=== PATIENT | male | born 1950 | race Caucasian/White ===

== ENCOUNTER → 2020-07-30 17:11 | Outpatient (CLI) | payer MEDICARE, SELFPAY | PROVIDERS: PCP Family Medicine; Visit Provider Family Medicine | DX: Z20.828 Contact with and (suspected) exposure to other viral communicable diseases (principal); U07.1 COVID-19 | CPT/HCPCS: U0003 ==

== ENCOUNTER → 2020-09-14 14:32 | Outpatient (CLI) | payer MEDICARE, SELFPAY ==
[2020-09-16 13:25] LABS: Covid-19 Nasal PCR Sendout Lex Not Detected
== END ==
PROVIDERS: PCP Family Medicine; Visit Provider Family Medicine
DX: Z03.818 Encounter for observation for suspected exposure to other biological agents ruled out (principal)
CPT/HCPCS: U0004

== ENCOUNTER → 2020-12-14 10:37 | Outpatient (CLI) | payer MEDICARE, SELFPAY ==
[2020-12-14 11:45] LABS: Coronavirus 19 IgG Antibody Negative (Negative); Coronavirus 19 IgM Antibody Negative (Negative)
== END ==
PROVIDERS: Visit Provider Ophthalmology
DX: Z01.812 Encounter for preprocedural laboratory examination (principal)
CPT/HCPCS: 36415; 86328

== ENCOUNTER 2020-12-15 08:41 | Day surgery (SDC) | payer MEDICARE, SELFPAY ==
[2020-12-08 12:12] VITALS: BMI 24.1
[2020-12-15 10:11] VITALS: BP 154/65; PULSE 63; RESP 18; TEMP 36.4; O2SAT 98
[2020-12-15 11:18] VITALS: BP 136/83; PULSE 56; RESP 16; TEMP 36.6; O2SAT 99
== END 2020-12-15 11:24 | disposition home or self-care (01) ==
PROVIDERS: PCP Family Medicine; Visit Provider Ophthalmology
PROC: (CPT 66821; principal; 2020-12-15 09:30)
DX: H26.493 Other secondary cataract, bilateral (principal); Z96.1 Presence of intraocular lens; Z88.1 Allergy status to other antibiotic agents; K21.9 Gastro-esophageal reflux disease without esophagitis; I48.91 Unspecified atrial fibrillation; M19.90 Unspecified osteoarthritis, unspecified site; Z86.73 Personal history of transient ischemic attack (TIA), and cerebral infarction without residual deficits; Z79.82 Long term (current) use of aspirin; Z79.899 Other long term (current) drug therapy
CPT/HCPCS: 66821

== ENCOUNTER → 2021-10-06 12:10 | Outpatient (CLI) | payer MEDICARE, SELFPAY | PROVIDERS: PCP Family Medicine; Visit Provider Nurse Practitioner | DX: U07.1 COVID-19 (principal) | CPT/HCPCS: C9803; U0003; U0005 ==

== ENCOUNTER 2024-08-26 08:38 | Emergency (ER) | payer MEDICARE, SELFPAY ==
[2024-08-26] VITALS (7 sets, daily range): BP systolic 131–143; BP diastolic 61–82; PULSE 60–70; RESP 14–16; TEMP 36.4; O2SAT 98–100; BMI 23.1
--- NOTE | 2024-08-26 09:06 | CT_ITS ---
PROCEDURE INFORMATION: Exam: CT Abdomen And Pelvis With Contrast Exam date and time: 08/26/2024 9:38 AM Age: 73 years old Clinical indication: Abdominal pain; Generalized; Additional info: Gen abd pain, no bm x 1wk TECHNIQUE: Imaging protocol: Computed tomography of the abdomen and pelvis with contrast. Radiation optimization: All CT scans at this facility use at least one of these dose optimization techniques: automated exposure control; mA and/or kV adjustment per patient size (includes targeted exams where dose is matched to clinical indication); or iterative reconstruction. Contrast material: ISOVUE; Contrast volume: 75 ml; Contrast route: IV; COMPARISON: No relevant prior studies available. FINDINGS: Lungs: Moderate atelectasis is seen in both lung bases. Diaphragm: A small hiatal hernia is seen. Liver: Normal. No mass. Gallbladder and biliary ducts: The gallbladder has been surgically removed. Mild air along the portal vein branches in the left lobe of the liver likely represents pneumobilia. Pancreas: Normal. No ductal dilation. Spleen: Normal. No splenomegaly. Adrenal glands: Normal. No mass. Kidneys and ureters: Mild hydronephrosis is seen on both sides. Stomach and bowel: Large amount of stool is noted in the rectum and sigmoid colon. Appendix: No evidence of appendicitis. Intraperitoneal space: No evidence of free air in the abdomen. Vasculature: Unremarkable. No abdominal aortic aneurysm. Lymph nodes: Unremarkable. No enlarged lymph nodes. Urinary bladder: Unremarkable as visualized. Reproductive: Unremarkable as visualized. Bones/joints: Moderate degenerative changes affect the spine. Old fractures involving the right superior and inferior pubic rami. Moderate degenerative changes affect the spine. Soft tissues: Unremarkable. IMPRESSION: 1. Large amount of stool in the rectum and sigmoid colon likely represents constipation. 2. The gallbladder has been surgically removed. Mild air along the portal vein branches in the left lobe of the liver likely represents pneumobilia. 3. Mild hydronephrosis on both sides.
[2024-08-26 09:14] LABS: Albumin Level 3.9 g/dl (3.5-5.0); Chloride 109 mmol/L (98-107)
[2024-08-26 09:15] LABS: Potassium 4.2 mmoL/L (3.5-5.1); Sodium 137 mmol/L (136-145)
--- NOTE | 2024-08-26 09:15 | HMH.EDGENADL ---
Discharge Plan Disposition Patient Disposition: Home, Self-Care Condition: Good Prescriptions Prescriptions: New peg 3350-electrolytes [Golytely] 236-22.74-6.74 -5.86 gram recon soln 240 ml PO Q10M Qty: 4000 0RF Rx Instructions: until fecal effluent is clear sennosides [senna] 8.6 mg tablet 8.6 mg PO HS PRN (Reason: constipation) Qty: 30 1RF No Action aspirin 81 MG tablet,delayed release (DR/EC) 81 mg PO DAILY pantoprazole 40 MG tablet,delayed release (DR/EC) 40 mg PO BID gabapentin 300 MG capsule 300 mg PO BID fluoxetine 20 MG capsule 20 mg PO DAILY Referrals Follow up/Referrals: Lisa Marte [Primary Care Provider] - See instructions Huy Gale II, MD [Staff Physician] - See instructions Activity Restrictions/Add. Instructions Additional Instructions/Restrictions: You were evaluated in the emergency department today. 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 Gale. Contact his office over the next 24 hours to schedule an appointment. 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 Please follow protocol for bowel cleanout. I recommend clear liquids while doing this and then slowly advancing your diet as tolerated once you have completed cleanout. I am also prescribing you senna to take nightly as needed if you continue to have issues with constipation. Return to the emergency department for new or worsening symptoms. Clinical Impressions Clinical Impression: Pneumobilia, Acute constipation, Fecal impaction Instructions Patient Instructions: DI for Constipation, DI for Acute Abdominal Pain Print Language Print Language: American Discharge ED Provider: Racheal George General Adult HPI General Chief complaint: Abdominal Pain Stated complaint: constipation x4 days, blood, severe adb pain Time Seen by Provider: 08/26/24 08:47 Mode of Arrival: Ambulatory Source of Information: Patient Limitations: No Limitations Description of Symptoms (Recalled from ER Triage Doc. by RN): Mr. Shook reports he has been struggling with constipation, he called Dr. Gale this morning who suggested he come to the ER. pt c/o generalized abd pain that is an 8/10 and sharp in nature. pt denies urinary symptoms. pt states he had a small bm this am and had them over the weekend. He states that his feces is very hard and he is unable to get it all out. pt also c/o bright red blood in his stool but that he thinks its his hemmorhoids. pt is on a bowel regimen of miralax and konosol. History of Present Illness HPI narrative: This patient is a 73-year-old male with a history of GERD, TIA, prior ERCP with stenting complicated by CBD injury, ventral hernia repair presenting to the emergency department for evaluation with concern for upper abdominal pain, feeling that he needs to have a bowel movement but being unable to go, no bowel movement in approximately 1 week with difficulty passing gas. Patient has that he has chronic constipation for which he is on a bowel regimen and follows with Dr. Gale with gastroenterology. He notes that despite this, he has not been able to have a good bowel movement in about a week only passing very small amounts of stool over the weekend. He was passing gas over the weekend but is not today. Pain is mostly in his upper abdomen and is significant. Given this, he was instructed by his doctor to come to the ED for evaluation. No fevers, chills, nausea, vomiting. He does note bright red blood per rectum which he believes is related to hemorrhoids. Related Data Home Medications ?Medication ?Instructions ?Recorded ?Confirmed aspirin 81 mg tablet,delayed 81 mg PO DAILY HEART HEALTH 12/08/20 12/08/20 release fluoxetine 20 mg capsule 20 mg PO DAILY Anxiety 12/08/20 12/08/20 gabapentin 300 mg capsule 300 mg PO BID Pain 12/08/20 12/08/20 pantoprazole 40 mg tablet,delayed 40 mg PO BID GERD 12/08/20 12/08/20 release Previous Rx's ?Medication ?Instructions ?Recorded peg 3350-electrolytes 236 240 ml PO Q10M #4,000 mL 08/26/24 gram-22.74 gram-6.74 gram-5.86 gram solution (Golytely) sennosides 8.6 mg tablet (senna) 8.6 mg PO HS PRN constipation #30 08/26/24 tabs Allergies Allergy/AdvReac Type Severity Reaction Status Date / Time erythromycin base Allergy Mild Nausea Verified 08/26/24 09:09 [facility] Disclaimer: The information contained in this section may have been updated after the patient was seen, as this information can be updated by other users. Social History Smoking Status: Never smoker second hand exposure: No alcohol intake: current alcohol intake frequency: a few times a week current occupational status: retired Travel in the last 8 weeks: None household members: spouse housing: house current occupational exposures/hazards: No caffeine: Yes Other Medical History Have you received the Flu Vaccine for this season: Yes Have you received the Pneumonia Vaccine: Yes ROS Obtained: Yes All systems reviewed & no additional complaints except as documented Physical Exam General General appearance: alert and in no apparent distress Head Head exam: atraumatic and normocephalic Eye Eye exam: Present normal appearance, PERRL and EOMI ENT ENT exam: Present normal exam, normal oropharynx, mucous membranes moist and normal external ear exam Neck Neck exam: Present normal inspection, full ROM and trachea midline; Absent tenderness Chest Chest inspection: Present normal inspection and symmetric chest wall rise; Absent tenderness Respiratory Respiratory exam: Present normal lung sounds bilaterally; Absent respiratory distress, wheezes, stridor or accessory muscle use Cardiovascular Cardiovascular exam: Present regular rate and normal rhythm Abdominal Exam Abdominal exam: Present soft; Absent distention, tenderness or guarding Extremities Exam Extremities exam: Present normal inspection, full ROM and normal capillary refill; Absent tenderness or edema Back Exam Back exam: Present normal inspection and full ROM; Absent tenderness Neurological Exam Neurological exam: Present alert, oriented X3, CN II-XII intact and normal gait; Absent motor sensory deficit Psychiatric Psychiatric exam: Present normal affect and normal mood Skin Skin exam: Present warm and dry Medical Decision Making Medical Records Medical records reviewed: Yes I reviewed the patient's medical records. Screening: Per USPSTF and CDC recommendations, given the prevalence of disease in our region, it is our hospital?s policy to screen for HIV and viral Hepatitis for all patients aged 18 and over and those with ongoing risk factors. Eric Inquiry Pt receiving controlled substance: No Vital Signs: 08/26/24 08:45 08/26/24 08:51 08/26/24 09:12 Temperature 97.6 F Temperature Source Oral Pulse Rate 63 67 Pulse Rate [Left] 70 Respiratory Rate 14 Blood Pressure 143/82 H 142/79 H Blood Pressure [Right Arm] 143/82 H Blood Pressure Mean 102 100 Blood Pressure Mean [Right Arm] 102 Blood Pressure Source [Right Arm] Automatic Cuff Blood Pressure Position [Right Arm] Sitting 02 Sat by Pulse Oximetry 100 98 100 Oxygen Delivery Method Room Air 08/26/24 09:30 08/26/24 10:00 08/26/24 10:30 Temperature Temperature Source Pulse Rate 64 60 65 Pulse Rate [Left] Respiratory Rate Blood Pressure 135/77 137/73 143/61 H Blood Pressure [Right Arm] Blood Pressure Mean 97 94 88 Blood Pressure Mean [Right Arm] Blood Pressure Source [Right Arm] Blood Pressure Position [Right Arm] 02 Sat by Pulse Oximetry 100 100 99 Oxygen Delivery Method 08/26/24 11:06 Temperature 97.6 F Temperature Source Pulse Rate 67 Pulse Rate [Left] Respiratory Rate 16 Blood Pressure 131/74 Blood Pressure [Right Arm] Blood Pressure Mean Blood Pressure Mean [Right Arm] Blood Pressure Source [Right Arm] Blood Pressure Position [Right Arm] 02 Sat by Pulse Oximetry Oxygen Delivery Method Room Air Lab Data Lab results reviewed: Yes I reviewed the patient's lab results. Lab Results 08/26/24 09:01: WBC 5.3, RBC 4.43 L, Hgb 14.5, Hct 41.8 L, MCV 94.4 H, MCH 32.8 H, MCHC 34.7, RDW 13.1, Plt Count 244, MPV 7.3 L, Neut % (Auto) 66.5, Lymph % (Auto) 23.7, Clayton % (Auto) 7.2, Eos % (Auto) 2.0, Baso % (Auto) 0.7, Neut # (Auto) 3.5, Lymph # (Auto) 1.2, Clayton # (Auto) 0.4, Eos # (Auto) 0.1, Baso # (Auto) 0.0, Sodium 137, Potassium 4.2, Chloride 109 H, Carbon Dioxide 23, Anion Gap 9.2, BUN 15, Creatinine 0.80, Estimated Creat Clear 68, Estimated GFR 95, Est GFR ( Amer) 115, Glucose 94, Calcium 9.7, Total Bilirubin 0.8, AST 33, ALT 25, Alkaline Phosphatase 75, Total Protein 6.5, Albumin 3.9, Globulin 2.6, Albumin/Globulin Ratio 1.5, Lipase 173 08/26/24 10:50: Lactate 0.8 08/26/24 09:01 08/26/24 09:01 Orders (Tests/Meds): ED MEDICATIONS Discontinued Medications Generic Name Dose Route Start Last Admin Trade Name Freq PRN Reason Stop Dose Admin Acetaminophen 1,000 mg 08/26/24 09:07 08/26/24 09:17 Acetaminophen 1,000mg/100ml Vial IV 08/26/24 09:08 1,000 mg ONCE ONE Administration Famotidine 20 mg 08/26/24 09:07 08/26/24 09:18 Famotidine 20mg/2ml Vial IV 08/26/24 09:08 20 mg ONCE ONE Administration Iopamidol 75 ml 08/26/24 09:45 08/26/24 09:45 Iopamidol-370 (76%);100ml Bottle IV 08/26/24 09:46 75 ml ONCE ONE Administration Ketorolac Tromethamine 15 mg 08/26/24 09:07 08/26/24 09:17 Ketorolac 30mg/Ml Vial IV 08/26/24 09:08 15 mg ONCE ONE Administration Ondansetron HCl 4 mg 08/26/24 09:07 08/26/24 09:26 Ondansetron 4mg/2ml Vial IV 08/26/24 09:08 4 mg ONCE ONE Administration Sodium Chloride 500 ml 08/26/24 09:07 08/26/24 09:17 Sodium Chloride 0.9% 500ml Bag IV 08/26/24 09:08 500 ml ONCE ONE Administration Sodium Chloride 8 ml 08/26/24 09:07 08/26/24 09:18 Sodium Chloride 0.9% 10ml Vial IV 09/25/24 09:06 8 ml NEEDED PRN Administration dilute pepcid Sodium Chloride 10 ml 08/26/24 09:45 08/26/24 09:45 Sodium Chloride 0.9% 10ml Syr (Rad Only) IV 09/25/24 09:44 10 ml NEEDED PRN Administration Maintain IV Site ORDERS Category Date Time Status CT abdomen pelvis w con Stat Cat Scan 08/26/24 09:06 Completed Complete Blood Count Auto Diff Stat Lab 08/26/24 09:01 Completed Comprehensive Metabolic Panel Stat Lab 08/26/24 09:01 Completed HIV (1&2) Antibody Rapid Stat Lab 08/26/24 09:01 Received Hep C Ab with Reflex to RNA Stat Lab 08/26/24 09:01 Received Lactic Acid Stat Lab 08/26/24 10:50 Completed Lipase Stat Lab 08/26/24 09:01 Completed Medical Decision Narrative: In summary, this patient is a 73-year-old male presenting to the Emergency Department for evaluation of upper abdominal pain, constipation, inability to pass gas or have a good bowel movement. Differential diagnoses considered include but are not limited to constipation, bowel obstruction, diverticulitis, hemorrhoids, ileus. Ruling out the most morbid conditions drove assessment. It should be noted patient's history includes GERD and chronic constipation which are not at goal therapy. This complicates all aspects of care by increasing patient's risk for morbidity. I reviewed patient's past medical records and noted prior surgical history including ventral hernia repair at . Of note, patient also had a hand surgery about a week ago. On exam, the patient is lying in bed in no acute distress. His abdominal exam is benign. Workup included CBC, CMP, lipase, lactic acid, CT abdomen pelvis with IV contrast. He was given a bolus of IV fluids as well as IV Toradol, acetaminophen, Zofran, and Pepcid for symptomatic improvement. I independently interpreted CT scan prior to the radiologist read and noted significant pancolonic stool burden without obvious air-fluid levels concerning for obstruction. Please see their read for final interpretation. They also noted pneumobilia, and I reviewed patient's past medical records from outside hospitals and noted that he has had pneumobilia on previous scans. I feel is likely chronic. Labs were obtained that demonstrated no significant leukocytosis, reassuring chemistry, normal lipase. Exam and workup overall reassuring On reassessment, patient had mild improvement after administration of interventions above. He is lying in bed in no acute distress. Patient and family are frustrated and concerned because they wanted to see his GI doctor, Dr. Gale, and were under the impression that he would be in the ER to take care of him as opposed to a physician he is not familiar with. I advised to them I am happy to call him for recommendations. I did call and discussed the case with Dr. Gale who advised that he felt the patient will be appropriate for a bowel cleanout with GoLytely and close follow-up as an outpatient. He also recommended senna as needed, which I did provide the patient. Patient also consents to manual disimpaction here in the emergency department given large amount of stool in the rectal vault. He went to the bathroom right before planning to do disimpaction and did have a good bowel movement and states that he no longer feels like he is impacted. Given this, disimpaction was deferred. Patient was discharged home with prescriptions for GoLytely and senna as well as instructions for close follow-up with gastroenterology. He was given strict return precautions and was discharged after all questions were answered. Critical Care Critical Care Time Critical Care Time: No
[2024-08-26 09:16] LABS: Basophils % 0.7 % (0.1-2.0); Eosinophils # 0.1 K/mm3 (0.0-0.4); Hematocrit 41.8 % (42.0-52.0); Hemoglobin 14.5 g/dL (14.1-18.0); Lymphocytes # 1.2 K/mm3 (0.7-4.5); Lymphocytes % 23.7 % (10-50); Mean Corpuscular HGB Conc 34.7 g/dL (31.8-35.4); Mean Corpuscular Hemoglobin 32.8 pg (27.0-31.2); Mean Corpuscular Volume 94.4 fl (80-94); Mean Platelet Volume 7.3 fl (7.4-10.4); Monocytes # 0.4 K/mm3 (0.1-1.0); Monocytes % 7.2 % (1.7-9.3); Neutrophils # 3.5 K/mm3 (1.8-7.8); Neutrophils % 66.5 % (37.0-80.0); Platelet Count 244 K/mm3 (142-424); Red Blood Count 4.43 M/mm3 (4.60-6.20); Red Cell Distribution Width 13.1 % (11.5-17.5); White Blood Count 5.3 K/mm3 (4.8-10.8)
[2024-08-26 09:17] LABS: Alanine Aminotransferase 25 U/L (12-78); Albumin/Globulin Ratio 1.5 (1.1-1.8); Alkaline Phosphatase 75 U/L (38-126); Anion Gap 9.2 mEq/L (5-15); Aspartate Amino Transferase 33 U/L (17-59); Bilirubin,Total 0.8 mg/dl (0.2-1.3); Blood Urea Nitrogen 15 mg/dl (9-20); Carbon Dioxide 23 mmol/L (22.0-30.0); Creatinine Clearance Estimated 68 mL/min (50-200); Estimated Glomerular Filt Rate 95 ml/min (>60); GFR (African American) 115 ML/MIN (>60); Globulin 2.6 g/dL (1.3-3.2); Total Protein,Serum 6.5 g/dl (6.3-8.2)
[2024-08-26] MEDS: SODIUM CHLORIDE 0.9% 500ML BAG 500 ML IV (09:17)
[2024-08-26] MEDS: ACETAMINOPHEN 1,000MG/100ML VIAL 1000 MG IV (09:17)
[2024-08-26] MEDS: KETOROLAC 30MG/ML VIAL 15 MG IV (09:17)
[2024-08-26 09:18] LABS: Calcium 9.7 mg/dl (8.4-10.2); Glucose 94 mg/dl (74-100); Lipase 173 U/L (23-300)
[2024-08-26] MEDS: SODIUM CHLORIDE 0.9% 10ML VIAL 8 ML IV (09:18)
[2024-08-26] MEDS: FAMOTIDINE 20MG/2ML VIAL 20 MG IV (09:18)
[2024-08-26] MEDS: ONDANSETRON 4MG/2ML VIAL 4 MG IV (09:26)
[2024-08-26] MEDS: IOPAMIDOL-370 (76%);100ML BOTTLE 75 ML IV (09:45)
[2024-08-26] MEDS: SODIUM CHLORIDE 0.9% 10ML SYR (RAD ONLY) 10 ML IV (09:45)
--- NOTE | 2024-08-26 10:14 | PC.NURSE ---
Called Dr Gale office for Dr George to speak with him about this pt
[2024-08-26 11:07] LABS: Lactic Acid 0.8 mmol/L (0.7-2.1)
[2024-08-26 14:27] LABS: HIV (1&2) Antibody Rapid NONREACTIVE (NONREACTIVE)
[2024-08-27 08:21] LABS: HCV Ab Non Reactive (Non Reactive)
== END 2024-08-26 11:07 | disposition home or self-care (01) ==
PROVIDERS: Emergency Provider Emergency Medicine; PCP Family Medicine
DX: K59.00 Constipation, unspecified (principal); K83.8 Other specified diseases of biliary tract; R10.84 Generalized abdominal pain; R19.5 Other fecal abnormalities
CPT/HCPCS: 74177; 80053; 83605; 83690; 85025; 86803; 87389; 96374; 96375; 99285; J0131; J1885; J2405; Q9967; S0028

== ENCOUNTER 2024-10-08 10:00 | Outpatient (RCR) | payer MEDICARE, SELFPAY | END 2024-10-08 23:59 | disposition home or self-care (01) | LOC: OT 10:00 | PROVIDERS: Visit Provider Physician Assistant Medical | DX: M25.531 Pain in right wrist (principal) | CPT/HCPCS: 97014; 97035; 97140; 97165; G0283 ==

== ENCOUNTER 2024-11-04 11:00 | Outpatient (RCR) | payer MEDICARE, SELFPAY | END 2024-11-04 23:59 | disposition home or self-care (01) | LOC: OT 11:00 | PROVIDERS: Visit Provider Physician Assistant Medical | DX: M25.531 Pain in right wrist (principal); Z98.890 Other specified postprocedural states | CPT/HCPCS: 97014; 97035; 97110; 97140; G0283 ==

== ENCOUNTER 2024-11-27 14:00 | Outpatient (RCR) | payer MEDICARE, SELFPAY | END 2024-11-27 23:59 | disposition home or self-care (01) | LOC: OT 14:00 | PROVIDERS: Visit Provider Physician Assistant Medical | DX: M25.531 Pain in right wrist (principal); Z98.890 Other specified postprocedural states | CPT/HCPCS: 97014; 97110; 97140; 97168; G0283 ==

== ENCOUNTER → 2024-12-05 06:35 | Day surgery (SDC) | payer MEDICARE, SELFPAY ==
[2024-12-03 13:19] VITALS: BMI 23.1
[2024-12-05 07:00] VITALS: BP 164/89; PULSE 71; RESP 18; TEMP 36.3; O2SAT 98
[2024-12-05] MEDS: LACTATED RINGERS 1000ML 1,000 ML 50 ML IV (07:10)
--- NOTE | 2024-12-05 07:22 | EXP.ANES.CKL ---
[facility] Disclaimer: The information contained in this section may have been updated after the patient was seen, as this information can be updated by other users. Medical History Right wrist fracture Post ERCP bleeding Cholecystectomy planned Surgical History (Updated 12/05/24 @ 06:58 by Yakov Faith RN) History of hernia surgery History of surgery on wrist History of common bile duct surgery Family History Other No significant family history Social History Smoking Status: Never smoker second hand exposure: No alcohol intake: current alcohol intake frequency: a few times a week substance use type: denies use current occupational status: retired Travel in the last 8 weeks: None household members: spouse housing: house current occupational exposures/hazards: No caffeine: Yes [facility] Anesthesia Checklist Patient Identification Patient Identification: Verbal (Name & ) Structural Data Admitted From: Home Planned Operative Procedure/s: colonoscopy NPO Status Verified Time NPO: 00:00 Airway Assessment Mallampati Score:: Class II C-Spine Mobility Assessed: Yes TMJ Mobility Assessed: Yes Dentition: Good Dentition Neurological Assessment Level of Consciousness: Awake, Alert and Appropriate Anesthesia Plan Anesthesia Risk discussed: Yes Anesthesia Plan: Verified ASA Class: II Anesthesia Type: MAC
--- NOTE | 2024-12-05 07:45 | P.HP_ITS ---
History of Present Illness *Admission Date: 12/05/24 *Reason for visit:: Incomplete defecation *History of present illness: Mr. Shook is a 74-year-old gentleman with defecatory difficulty and incomplete defecation here for diagnostic colonoscopy. He had seen me on September 04, 2024. He was having some abdominal discomfort, bloating and belching. He had longstanding obstipation/incomplete defecation. His last colonoscopy was with Dr. Neri De Los Santos MD in 2018. The patient did have a prior iatrogenic bile duct injury after ERCP (Don Tian MD) and ended up with choledochojejunostomy or choledochoduodenostomy with major bile duct surgery. The patient after his visit was instructed to consider using Linzess which resulted in severe cramps. He was also instructed to do pelvic floor physical therapy. He did go to the pelvic floor physical therapist and has noted marked improvement of his defecation. He is still using the MiraLAX plus Konsyl and uses Perdiem in the evenings but his bowel function is improved. Now he reports near daily abdominal pain across the upper abdomen radiating into the back. He has excessive bloating. I had instructed him to use Beano and he states that he was taking this 30 minutes before his meal. He was not using this with the meal. H e does eat primarily greens and vegetables. [facility] Disclaimer: The information contained in this section may have been updated after the patient was seen, as this information can be updated by other users. Medical History Right wrist fracture Post ERCP bleeding Cholecystectomy planned Surgical History (Updated 12/05/24 @ 06:58 by Yakov Faith RN) History of hernia surgery History of surgery on wrist History of common bile duct surgery Family History Other No significant family history Social History (Updated 12/05/24 @ 07:24 by Delta Quintero CRNA) Smoking Status: Never smoker second hand exposure: No alcohol intake: current alcohol intake frequency: a few times a week substance use type: denies use current occupational status: retired Travel in the last 8 weeks: None household members: spouse housing: house current occupational exposures/hazards: No caffeine: Yes Have you lived/traveled outside [place] in past 30 days?: No Contact w/someone who lives/traveled outside US past 30 days?: No Exposure to someone with infectious disease in past 14 days?: No Do you have a fever (greater than 100.4 F or 38 C)?: No Have you tested positive for COVID-19: No Exposed to someone with COVID-19 in past 14 days?: No Do you have a sore throat?: No Do you have a cough?: No Do you have any weakness?: No Do you have any diarrhea?: No Are you experiencing any unusual bleeding?: No Do you have any muscle aches/pain?: No Do you have any abdominal pain?: No Are you experiencing loss of taste or smell?: No Other Medical History Have you received the Flu Vaccine for this season: Yes Have you received the Pneumonia Vaccine: Yes Review of Systems Review of Systems Review of systems (narrative): Negative *Cardiovascular Comments: Negative *Gastrointestinal Comments: Negative *Genitourinary Comments: Negative *Musculoskeletal Comments: Negative *Neurologic Comments: Negative Meds Home Medications and Allergies Home Medications ?Medication ?Instructions ?Recorded ?Confirmed ?Type aspirin 81 mg tablet,delayed 81 mg PO DAILY HEART HEALTH 12/08/20 12/03/24 History release fluoxetine 20 mg capsule 20 mg PO DAILY Anxiety 12/08/20 12/03/24 History gabapentin 300 mg capsule 300 mg PO BID Pain 12/08/20 12/03/24 History pantoprazole 40 mg tablet,delayed 40 mg PO ONCE GERD 09/04/24 12/03/24 History release polyethylene glycol 3350 17 17 g PO DAILY 09/04/24 12/03/24 History gram/dose oral powder (Miralax) psyllium husk (with sugar) 3 1 tbsp PO DAILY 09/04/24 12/03/24 History gram/12 gram oral powder (Konsyl (sugar)) kanja-h-[id number] 400 unit 400 unit PO DAILY PRN gas 10/23/24 12/03/24 History tablet (Beano) buspirone 10 mg tablet 10 mg PO BID #60 tabs 10/23/24 12/03/24 Rx folic acid 1 mg tablet 1 mg PO DAILY 10/23/24 12/03/24 History sodium,potassium,mag sulfates 17.5 See Rx Instructions PO .COMPLEX 11/21/24 Rx gram-3.13 gram-1.6 gram oral soln #354 mL (Suprep Bowel Prep Kit) New Prescriptions to Start Prescriptions: Allergies Allergy/AdvReac Type Severity Reaction Status Date / Time erythromycin base Allergy Mild Nausea Verified 12/05/24 06:59 Exam Data for Last 24 hours Vital signs and Labs for Last 24 Hours: Temp Pulse Resp BP Pulse Ox O2 Del Method 97.3 F L 71 18 164/89 H 98 Room Air 12/05/24 07:00 12/05/24 07:00 12/05/24 07:00 12/05/24 07:00 12/05/24 07:00 12/05/24 07:00 I & O for Last 24 hours: Intake & Output 12/02/24 12/03/24 12/04/24 12/05/24 23:59 23:59 23:59 23:59 Weight 157 lb *Routine HEENT Exam Head: Present normocephalic Eye: Present EOMI and PERRL ENT: Present mucous membranes moist *Routine Neck Exam Neck: Present supple *Routine Respiratory Exam Respiratory: Present CTA bilaterally *Routine Cardiovascular Exam Cardiovascular: Present RRR *Routine Abdominal Exam Abdominal: Present soft and normoactive bowel sounds; Absent tenderness *Routine Rectal Exam Rectal:: deferred *Routine Genitalia Exam Genitalia:: deferred *Routine Extremities Exam Extremities: Absent cyanosis, clubbing or edema *Routine Skin Exam Skin: Present warm; Absent rash *Routine Neurological Exam Neurological: Present alert and oriented X3 Assessment and Plan *Assessment and plan (1) Outlet dysfunction constipation: Status: Acute Category: Medical Code(s): K59.02 - Outlet dysfunction constipation (2) Incomplete defecation: Status: Acute Category: Medical Code(s): R15.0 - Incomplete defecation (3) Functional abdominal pain syndrome: Status: Acute Category: Medical Code(s): R10.9 - Unspecified abdominal pain (4) Bloating: Status: Acute Category: Medical Code(s): R14.0 - Abdominal distension (gaseous) Plan A/P: 1. Outlet dysfunction constipation/incomplete defecation, bloating and upper abdominal pain is the preprocedural diagnosis. The patient will be anesthetized/sedated using MAC sedation. The patient has been seen and examined. Cardiac and lung assessment prior to the examination is stable. Proceed with planned diagnostic colonoscopy
[2024-12-05 07:47] VITALS: O2SAT 98
--- NOTE | 2024-12-05 07:47 | P.PCN_ITS ---
[facility] Procedure Note Date: 12/05/24 Time: 08:14 Procedure Note:: Colonoscopy Procedure Report: Colonoscopy with cold snare polypectomy Endoscopist: Huy Gale II, MD Referring physician: Annabella Marte DO Date of Procedure: December 05, 2024 Equipment: Olympus 190 variable stiffness pediatric colonoscope Sedation: MAC sedation Indication: Mr. Shook is a 74-year-old gentleman who is here for diagnostic colonoscopy. The patient has had defecatory difficulty and incomplete defec ation. He was having some abdominal discomfort, bloating and belching. He had longstanding obstipation/incomplete defecation. His last colonoscopy was with Dr. Neri De Los Santos MD in 2019. At that time, he had no colon polyps. His colonoscopy (in [facility]) prior to this in 2011 or 2012 had shown polyps. The patient did have a prior iatrogenic bile duct injury after ERCP (Don Tian MD) and ended up with choledochojejunostomy or choledochoduodenostomy with major bile duct surgery. The patient after his visit was instructed to consider using Linzess which resulted in severe cramps. He was also instructed to do pelvic floor physical therapy. He did go to the pelvic floor physical therapist and has noted marked improvement of his defecation. He is still using the MiraLAX plus Konsyl and uses Perdiem in the evenings but his bowel function is improved. However, he reported near daily abdominal pain across the upper abdomen radiating into the back. He has excessive bloating. I had instructed him to use Beano and he states that he was taking this 30 minutes before his meal. He was not using this with the meal. He does eat primarily greens and vegetables. I did recommend taking the Beano with his meals and begin buspirone and Iberogast. The patient has had marked improvement of his abdominal pain and bloating. He reports no rectal bleeding, weight loss or family history of colon cancer. Procedure: Prior to the procedure, a history and physical exam was performed, and patient's medications and allergies were reviewed. The risks, benefits and alternatives of the sedation and procedure were discussed with the patient. All questions were answered and informed consent was obtained. The patient was brought to the procedure room. Patient identification and proposed procedure were verified by the physician and the nurse. The patient was placed in a left lateral decubitus position and the scope was passed under direct vision. Throughout the procedur e, the patient's blood pressure, pulse, and oxygen saturations were monitored continuously. The colonoscopy was accomplished without difficulty. The patient tolerated the procedure well. Findings: On digital rectal examination there was normal rectal tone. There were no external hemorrhoids. The prostate was 2+, moderately firm but symmetric without nodules. The colonoscope was introduced through the anal canal to the rectum and advanced to the cecum. The ileocecal valve and appendiceal orifice were identified. The scope was advanced a short distance into the ileum which appeared grossly normal. The scope was then withdrawn into the colon. There were 5 colon polyps (cecum x 2 (5 and 9 mm) and descending x 3 (3, 4 and 4 mm)). These were all removed via cold snare polypectomy. There was a small diverticulum in the cecum. The remaining cecum, ascending, transverse, descending, sigmoid and rectum were grossly normal. There appeared to be an area of fibrosis and small pseudodiverticulum within the rectum from prior mucosal injury. There were no other mucosal abnormalities identified. Upon retroflexion within the rectum there were grade 1-2 internal hemorrhoids. The preparation was excellent throughout with [place] Preparation Score of 9. The cecal time was 14 minutes. Impression: 1. Colonic polyps x 5 2. Grade 1-2 internal hemorrhoids Plan: The patient is clinically better with treatment regimen. I will follow-up the polyp histology and recommend repeat surveillance colonoscopy again in 3 to 5 years based upon the pathology. I will discuss the findings with the patient and family.
[2024-12-05 08:18] VITALS: BP 111/69; PULSE 80; RESP 15; TEMP 36.2; O2SAT 97
[2024-12-05 08:28] VITALS: BP 113/68; PULSE 79; RESP 15; O2SAT 96
[2024-12-05 08:38] VITALS: BP 116/72; PULSE 71; RESP 15; O2SAT 96
[2024-12-05 08:48] VITALS: BP 125/80; PULSE 66; RESP 18; O2SAT 98
== END | disposition home or self-care (01) ==
PROVIDERS: PCP Family Medicine; Visit Provider Internal Medicine Gastroenterology
PROC: 0DJD8ZZ Inspection of Lower Intestinal Tract, Via Natural or Artificial Opening Endoscopic (ICD-10-PCS; CPT 45378; principal; 2024-12-05 08:00)
DX: K63.5 Polyp of colon (principal); K64.8 Other hemorrhoids; R15.0 Incomplete defecation; R10.9 Unspecified abdominal pain; R14.0 Abdominal distension (gaseous); Z86.0100 Personal history of colon polyps, unspecified
CPT/HCPCS: 45385; J7120

== ENCOUNTER 2025-05-22 13:01 | Day surgery (SDC) | payer MEDICARE, SELFPAY ==
[2025-05-20 13:54] VITALS: BMI 22.8
--- NOTE | 2025-05-22 13:55 | EXP.HP ---
History of Present Illness *Admission Date: 05/22/25 *History of present illness: Mr. Shook is a 74-year-old gentleman who is here diagnostic upper endoscopy. He presently reports some dysphagia and feels as if food gets hung up. He also has had bloating and some functional abdominal pain. He did have an EGD with me in [place] in January 2024. [facility] Disclaimer: The information contained in this section may have been updated after the patient was seen, as this information can be updated by other users. Medical History Hx of deep venous thrombosis Hx of TIA (transient ischemic attack) and stroke Hx of cardiac arrhythmia Right wrist fracture Post ERCP bleeding Cholecystectomy planned Surgical History History of ERCP History of cardiac ablation for atrial fibrillation History of hernia surgery History of surgery on wrist History of common bile duct surgery Family History Mother Cancer Sister Stroke Social History (Updated 05/22/25 @ 14:16 by Macrina Hernandez RN) Smoking Status: Never smoker second hand exposure: No alcohol intake: current alcohol intake frequency: a few times a week substance use type: denies use current occupational status: retired Travel in the last 8 weeks?: None household members: spouse housing: house current occupational exposures/hazards: No caffeine: Yes Have you lived/traveled outside [place] in past 30 days?: No Contact w/someone who lives/traveled outside US past 30 days?: No Exposure to someone with infectious disease in past 14 days?: No Do you have a fever (greater than 100.4 F or 38 C)?: No Have you tested positive for COVID-19?: No Exposed to someone with COVID-19 in past 14 days?: No Do you have a sore throat?: No Do you have a cough?: No Do you have any weakness?: No Are you experiencing any nausea/vomitting?: No Do you have any diarrhea?: No Are you experiencing any unusual bleeding?: No Do you have any muscle aches/pain?: No Do you have any abdominal pain?: No Are you experiencing loss of taste or smell?: No Other Medical History Have you received the Flu Vaccine for this season: Yes Have you received the Pneumonia Vaccine: Yes Review of Systems Review of Systems Review of systems (narrative): Negative *Cardiovascular Comments: Negative *Gastrointestinal Comments: Negative *Genitourinary Comments: Negative *Musculoskeletal Comments: Negative *Neurologic Comments: Negative Meds Home Medications and Allergies Home Medications ?Medication ?Instructions ?Recorded ?Confirmed ?Type aspirin 81 mg tablet,delayed 81 mg PO DAILY HEART HEALTH 12/08/20 05/20/25 History release fluoxetine 20 mg capsule 20 mg PO DAILY Anxiety 12/08/20 05/20/25 History pantoprazole 40 mg tablet,delayed 40 mg PO ONCE GERD 09/04/24 05/20/25 History release polyethylene glycol 3350 17 17 g PO DAILY 09/04/24 05/20/25 History gram/dose oral powder (Miralax) psyllium husk (with sugar) 3 1 tbsp PO DAILY 09/04/24 05/20/25 History gram/12 gram oral powder (Konsyl (sugar)) [id number] 400 unit 400 unit PO DAILY PRN gas 10/23/24 05/20/25 History tablet (Beano) folic acid 1 mg tablet 1 mg PO DAILY 10/23/24 05/20/25 History gabapentin 100 mg capsule 100 mg PO BID 03/18/25 05/20/25 History multivitamin 1 tab PO DAILY 03/18/25 05/20/25 History buspirone 10 mg tablet 10 mg PO DAILY 05/20/25 05/20/25 History New Prescriptions to Start Prescriptions: Allergies Allergy/AdvReac Type Severity Reaction Status Date / Time erythromycin base Allergy Mild Nausea Verified 05/22/25 14:25 Exam Data for Last 24 hours I & O for Last 24 hours: Intake & Output 05/19/25 05/20/25 05/21/25 05/22/25 23:59 23:59 23:59 23:59 Weight 155 lb *Routine HEENT Exam Head: Present normocephalic Eye: Present EOMI and PERRL ENT: Present mucous membranes moist *Routine Neck Exam Neck: Present supple *Routine Respiratory Exam Respiratory: Present CTA bilaterally *Routine Cardiovascular Exam Cardiovascular: Present RRR *Routine Abdominal Exam Abdominal: Present soft and normoactive bowel sounds; Absent tenderness *Routine Rectal Exam Rectal:: deferred *Routine Genitalia Exam Genitalia:: deferred *Routine Extremities Exam Extremities: Absent cyanosis, clubbing or edema *Routine Skin Exam Skin: Present warm; Absent rash *Routine Neurological Exam Neurological: Present alert and oriented X3 Assessment and Plan *Assessment and plan (1) Dysphagia: Status: Acute Category: Medical Code(s): R13.10 - Dysphagia, unspecified (2) Bloating: Status: Acute Category: Medical Code(s): R14.0 - Abdominal distension (gaseous) (3) Functional abdominal pain syndrome: Status: Acute Category: Medical Code(s): R10.9 - Unspecified abdominal pain Plan A/P: 1. Dysphagia with bloating and functional abdominal pain is the preprocedural diagnosis. The patient will be anesthetized/sedated using MAC sedation. The patient has been seen and examined. Cardiac and lung assessment prior to the examination is stable. Proceed with planned diagnostic EGD.
--- NOTE | 2025-05-22 13:57 | HMH.PROCNOTE ---
[facility] Procedure Note Date: 05/22/25 Time: 14:49 Procedure Note:: Upper Endoscopy Procedure Report: Esophagogastroduodenoscopy with cold biopsies and TTS balloon dilation Endoscopost: Huy Gale II, MD Referring Physician: Annabella Marte DO Date of Procedure: May 22, 2025 Equipment: Olympus GIF-1100 standard upper endoscope Sedation: MAC sedation Indications: Mr. Shook is a 74-year-old gentleman who is here diagnostic upper endoscopy. He presently reports some dysphagia and feels as if food gets hung up. He also has had bloating and some functional abdominal pain. He did have an EGD with az in [place] in January 2024. The patient does have a history of outlet dysfunction constipation and defecatory difficulties with incomplete bowel evacuation/incomplete defecation. He does report fullness. He did do the pelvic floor physical therapy. He also has improved some with diaphragmatic breathing. Procedure: Prior to the procedure, a history and physical exam was performed, and patient's medications and allergies were reviewed. The risks, benefits and alternatives of the sedation and procedure were discussed with the patient. All questions were answered and informed consent was obtained. The patient was brought to the procedure room. Patient identification and proposed procedure were verified by the physician and the nurse. The patient was placed in a left lateral decubitus position and the scope was passed under direct vision. Throughout the procedure, the patient's blood pressure, pulse, and oxygen saturations were monitored continuously. The upper GI endoscopy was accomplished without difficulty. The patient tolerated the procedure well. Findings: The scope was passed directly into the upper esophagus and advanced to the third and fourth portion of the duodenum. A cold biopsy was taken from the second portion of the duodenum for the disaccharidase assay. The post bulbar duodenum, ampulla and duodenal bulb were normal with normal mucosa and conniventes. The scope was withdrawn through a normal duodenal bulb and pylorus into the stomach. There was bile reflux with mild to moderate linear reactive gastropathy of the antrum and body. The fundus of the stomach was normal. Cold biopsies were taken from the antrum and lesser curvature of the stomach. Upon retroflexion there was no hiatal hernia. The scope was then withdrawn into the esophagus. There is no evidence of reflux esophagitis or Mendenhall's. There was no rings, strictures, corrugation or furling. There was a very small proximal esophageal inlet patch. There were tertiary contractions and evidence of moderate esophageal dysmotility. The entire esophagus was dilated to 60 [place]/20 mm with a TTS hydrostatic balloon. There was mild resistance at the cricopharyngeus. The remainder of the esophageal mucosa was normal. Impression: 1. Nonerosive GERD with moderate esophageal dysmotility and mild cricopharyngeal spasm 2. Bile reflux with mild to moderate linear reactive gastropathy Plan: I will follow-up the biopsies and disaccharidase assay. I would recommend that he continue the MiraLAX plus Konsyl daily. I would also recommend continuing buspirone neuromodulation and Iberogast.
[2025-05-22 14:13] VITALS: BP 160/82; PULSE 51; RESP 16; TEMP 36.6; O2SAT 98
[2025-05-22] MEDS: LACTATED RINGERS 1000ML 1,000 ML 50 ML IV (14:28)
--- NOTE | 2025-05-22 14:32 | P.PNANES_ITS ---
[facility] Disclaimer: The information contained in this section may have been updated after the patient was seen, as this information can be updated by other users. Medical History Hx of deep venous thrombosis Hx of TIA (transient ischemic attack) and stroke Hx of cardiac arrhythmia Right wrist fracture Post ERCP bleeding Cholecystectomy planned Surgical History History of ERCP History of cardiac ablation for atrial fibrillation History of hernia surgery History of surgery on wrist History of common bile duct surgery Family History Mother Cancer Sister Stroke Social History (Updated 05/22/25 @ 14:16 by Macrina Hernandez RN) Smoking Status: Never smoker second hand exposure: No alcohol intake: current alcohol intake frequency: a few times a week substance use type: denies use current occupational status: retired Travel in the last 8 weeks?: None household members: spouse housing: house current occupational exposures/hazards: No caffeine: Yes Have you lived/traveled outside [place] in past 30 days?: No Contact w/someone who lives/traveled outside US past 30 days?: No Exposure to someone with infectious disease in past 14 days?: No Do you have a fever (greater than 100.4 F or 38 C)?: No Have you tested positive for COVID-19?: No Exposed to someone with COVID-19 in past 14 days?: No Do you have a sore throat?: No Do you have a cough?: No Do you have any weakness?: No Are you experiencing any nausea/vomitting?: No Do you have any diarrhea?: No Are you experiencing any unusual bleeding?: No Do you have any muscle aches/pain?: No Do you have any abdominal pain?: No Are you experiencing loss of taste or smell?: No [facility] Anesthesia Checklist Patient Identification Patient Identification: Arm Band and Verbal (Name & ) Structural Data Admitted From: Home Planned Operative Procedure/s: EGD Consent for Planned Operative Procedure(s) Verified: Yes Verified Documents: Surgical Consent NPO Status Verified Time NPO: 00:00 Additional verifications Anesthesia Reactions: No Airway Assessment Mallampati Score:: Class II C-Spine Mobility Assessed: Yes TMJ Mobility Assessed: Yes Dentition: Good Dentition Neurological Assessment Level of Consciousness: Awake, Alert and Appropriate Hx Seizures: No Numbness or tingling in extremities: No Anesthesia Plan Anesthesia Risk discussed: Yes Anesthesia Plan: Verified ASA Class: II Anesthesia Type: MAC
[2025-05-22 14:54] VITALS: BP 134/75; PULSE 64; RESP 17; TEMP 36.3; O2SAT 98
[2025-05-22 15:04] VITALS: BP 120/74; PULSE 67; RESP 17; O2SAT 97
[2025-05-22 15:14] VITALS: BP 132/72; PULSE 54; RESP 17; O2SAT 98
[2025-05-22 15:23] VITALS: BP 130/71; PULSE 59; RESP 17; O2SAT 100
[2025-05-26 16:17] LABS: Interpretation Notes (.); Lactase 2.85 (>/= 14.0); Maltase 230.16 (>/= 110.0); Palatinase 18.23 (>/= 8.5); Reference Notes (.); Sucrase 64.94 (>/= 25.0)
== END 2025-05-22 15:28 | disposition home or self-care (01) ==
PROVIDERS: PCP Family Medicine; Visit Provider Internal Medicine Gastroenterology
PROC: 0DJ08ZZ Inspection of Upper Intestinal Tract, Via Natural or Artificial Opening Endoscopic (ICD-10-PCS; CPT 43239; principal; 2025-05-22 14:30)
DX: K21.9 Gastro-esophageal reflux disease without esophagitis (principal); K29.50 Unspecified chronic gastritis without bleeding; Z86.73 Personal history of transient ischemic attack (TIA), and cerebral infarction without residual deficits; Z88.1 Allergy status to other antibiotic agents; Z79.82 Long term (current) use of aspirin; Z79.899 Other long term (current) drug therapy
CPT/HCPCS: 43239; 43249; 82657; C1726; J2003; J2704; J7120